=== PATIENT | female | born 1960 | race African-American/Black ===

== ENCOUNTER → 2016-11-15 | Outpatient (CLI) | payer MEDICARE ==
[~2016-11-15] MED LIST: REGADENOSON 0.4 MG/5 ML IV ONE
== END | disposition home or self-care (01) ==
LOC: NM 07:54
DX: I20.9 Angina pectoris, unspecified (principal)
CPT/HCPCS: 78452; 93017; A9500; J2785

== ENCOUNTER 2020-10-15 08:49 | Inpatient (IN) | payer MEDICARE, MEDICAID ==
[~2020-10-15] VITALS: Ht 165.1 cm; Wt 80.3 kg
[2020-10-15] MEDS ORDERED: MORPHINE SULFATE 4 MG/ML CPJ (NOT FOR IM USE) IV STA (09:03)
[2020-10-15] MEDS ORDERED: ONDANSETRON HCL 4MG/2ML INJ IV STA (09:03)
[2020-10-15] MEDS ORDERED: FAMOTIDINE 20MG/2ML VIAL IV STA (09:03)
[2020-10-15] MEDS ORDERED: SODIUM CHLORIDE 0.9% 1,000 ML IV ONE (09:15)
[2020-10-15 09:22] LABS: BASOPHILS % 0.6 % (0.0-2.0); EOSINOPHILS % 1.2 % (0.0-5.0); HEMATOCRIT. 40.7 % (36.0-48.0); HEMOGLOBIN. 12.6 g/dL (12.0-16.0); LYMPHOCYTES % 20.6 % (20.0-50.0); MEAN CORPUSCULAR HEMOGLOBIN 26.5 pg (28.0-32.0); MEAN CORPUSCULAR VOLUME 85.2 fL (81.0-99.0); MEAN PLATELET VOLUME 8.2 fl (7.4-10.4); MONOCYTES % 5.4 % (2.0-8.0); NEUTROPHILS % 72.2 % (40.0-76.0); PLATELET 209 x1000/uL (130-400); RED BLOOD CELL COUNT 4.78 mill/uL (4.2-5.4); RED CELL DISTRIBUTION WIDTH 16.7 % (11.6-14.6)
[2020-10-15 09:28] LABS: CHLORIDE 108 mEq/L (98-107)
[2020-10-15 09:34] LABS: ETHANOL BLOOD < 10 mg/dL
[2020-10-15 10:03] LABS: PROTHROMBIN TIME 10.7 sec (9.6-11.0)
[2020-10-15 10:11] LABS: CLARITY URINE CLEAR (CLEAR); COLOR URINE YELLOW (YELLOW); KETONES URINE NEGATIVE (NEGATIVE); LEUKOCYTE ESTERASE URINE NEGATIVE (NEGATIVE); NITRITE URINE NEGATIVE (NEGATIVE); OCCULT BLOOD URINE NEGATIVE (NEGATIVE); PH URINE 7.5 (4.5-8.0); PROTEIN URINE 1+ (NEGATIVE); SPECIFIC GRAVITY URINE 1.011 (1.005-1.030); UROBILINOGEN URINE 0.2 E.U./dL (0.2-1.0)
[2020-10-15] MEDS ORDERED: SODIUM CHLORIDE 0.9% 1000ML BAG (SEPSIS BOLUS) IV ONE (10:15)
[2020-10-15] MEDS ORDERED: PIPERACILLIN/TAZ 3.375G PREMIX 50 ML IV ONE (10:15)
[2020-10-15] MEDS ORDERED: VANCOMYCIN 1 G PREMIX 200 ML IV ONE (10:15)
[2020-10-15 10:24] LABS: METHADONE URINE SCREEN NEGATIVE (NEGATIVE)
[2020-10-15 10:25] LABS: *AMPHETAMINES SCREEN URINE NEGATIVE (NEGATIVE); *BARBITURATES SCREEN URINE NEGATIVE (NEGATIVE); *BENZODIAZEPINES SCREEN URINE NEGATIVE (NEGATIVE); CANNABINOID URINE SCREEN PRESUMTIVE POSITIVE (NEGATIVE); OPIATES URINE SCREEN PRESUMTIVE POSITIVE (NEGATIVE); PHENCYCLIDINE URINE SCREEN NEGATIVE (NEGATIVE)
[2020-10-15 10:26] LABS: *COCAINE SCREEN URINE NEGATIVE (NEGATIVE)
[2020-10-15] MEDS ORDERED: IOHEXOL-300 100 ML BOTTLE ONE (10:47)
[2020-10-15] MEDS ORDERED: MORPHINE SULFATE 4 MG/ML CPJ (NOT FOR IM USE) IV ONE ×2 (12:15→14:00)
[2020-10-15] MEDS ORDERED: AMLODIPINE 10MG TABLET PO SCH (13:15)
[2020-10-15] MEDS ORDERED: CLONIDINE 0.1MG TABLET PO PRN (13:15)
[2020-10-15] MEDS ORDERED: ACETAMINOPHEN 325MG TABLET PO PRN (13:15)
[2020-10-15] MEDS ORDERED: DILTIAZEM HCL 5MG/ML 5ML VIAL IV ONE (14:00)
[2020-10-15] MEDS ORDERED: MORPHINE SULFATE 2 MG/ML CPJ (NOT FOR IM USE) IV NR (14:00)
[2020-10-15] MEDS ORDERED: MORPHINE SULFATE 4 MG/ML CPJ (NOT FOR IM USE) IV NR (14:00)
[2020-10-15] MEDS: ONDANSETRON HCL 4MG/2ML INJ IV PRN ×2 (14:17→20:18)
[2020-10-15] MEDS ORDERED: DILTIAZEM HCL 5MG/ML 5ML VIAL IV NR (19:00)
[2020-10-15] MEDS: ENOXAPARIN 80MG/0.8ML SYR SUBCUT SCH (19:30)
[2020-10-15] MEDS: MORPHINE SULFATE 2 MG/ML CPJ (NOT FOR IM USE) IV PRN ×2 (19:42→23:56)
[2020-10-15 21:46] LABS: HEMATOCRIT 38.1 % (36.0-48.0); HEMOGLOBIN 12.3 g/dL (12.0-16.0)
[2020-10-15] MEDS ORDERED: METOPROLOL TARTRATE 5MG/5ML VIAL IV ONE (22:00)
[2020-10-15] MEDS: DILTIAZEM HCL 60MG TABLET PO SCH (22:00)
[2020-10-15] MEDS ORDERED: DILTIAZEM HCL 125 MG in DEXTROSE 5% WATER 125 ML IV PRN (22:15)
[2020-10-16] VITALS (11 sets, daily range): BP systolic 109–168; BP diastolic 22–119
[2020-10-16] MEDS: MORPHINE SULFATE 2 MG/ML CPJ (NOT FOR IM USE) IV PRN ×2 (04:10→20:03)
[2020-10-16 05:16] LABS: BASOPHILS % 0.3 % (0.0-2.0); HEMATOCRIT. 38.4 % (36.0-48.0); HEMOGLOBIN. 12.5 g/dL (12.0-16.0); LYMPHOCYTES % 10.7 % (20.0-50.0); MEAN CORPUSCULAR HEMOGLOBIN 26.9 pg (28.0-32.0); MEAN CORPUSCULAR VOLUME 82.4 fL (81.0-99.0); MEAN PLATELET VOLUME 7.8 fl (7.4-10.4); MONOCYTES % 10.2 % (2.0-8.0); NEUTROPHILS % 78.8 % (40.0-76.0); PLATELET 190 x1000/uL (130-400); RED BLOOD CELL COUNT 4.65 mill/uL (4.2-5.4); RED CELL DISTRIBUTION WIDTH 16.3 % (11.6-14.6)
[2020-10-16 05:23] LABS: CHLORIDE 104 mEq/L (98-107)
[2020-10-16] MEDS: DILTIAZEM HCL 60MG TABLET PO SCH ×3 (06:00→22:13)
[2020-10-16] MEDS: ENOXAPARIN 80MG/0.8ML SYR SUBCUT SCH ×2 (09:00→15:55)
[2020-10-16] MEDS ORDERED: POTASSIUM CHLORIDE 20MEQ TABLET SR PO NR (13:00)
[2020-10-16] MEDS ORDERED: DILTIAZEM HCL 5MG/ML 5ML VIAL IV PRN (14:30)
[2020-10-16] MEDS ORDERED: METO-411 MT (15:33)
[2020-10-16] MEDS ORDERED: LOSA50TA41 MT (15:33)
[2020-10-16] MEDS ORDERED: CALC-906 MT (15:33)
[2020-10-16] MEDS ORDERED: ATOR10TA69 MT (15:33)
[2020-10-16] MEDS ORDERED: POTA10CA42 MT (15:33)
[2020-10-16] MEDS ORDERED: FURO40TA5 MT (15:35)
[2020-10-16] MEDS ORDERED: ASPI-1497 MT (15:35)
[2020-10-16] MEDS ORDERED: RIVA20TA MT (15:35)
[2020-10-16] MEDS ORDERED: non (15:42)
[2020-10-16] MEDS: ONDANSETRON HCL 4MG/2ML INJ IV PRN (20:57)
[2020-10-16] MEDS ORDERED: LORAZEPAM 1MG TABLET PO PRN (22:30)
[2020-10-17] VITALS (14 sets, daily range): BP systolic 111–140; BP diastolic 34–99
[2020-10-17] MEDS: ZOLPIDEM TARTRATE 5MG TABLET PO PRN ×2 (00:57→21:25)
[2020-10-17] MEDS: DILTIAZEM HCL 60MG TABLET PO SCH ×3 (06:00→21:25)
[2020-10-17] MEDS: ENOXAPARIN 80MG/0.8ML SYR SUBCUT SCH (06:52)
[2020-10-17 11:38] LABS: BASOPHILS % 0.3 % (0.0-2.0); EOSINOPHILS % 0.1 % (0.0-5.0); HEMATOCRIT. 36.6 % (36.0-48.0); HEMOGLOBIN. 11.4 g/dL (12.0-16.0); LYMPHOCYTES % 17.1 % (20.0-50.0); MEAN CORPUSCULAR HEMOGLOBIN 26.2 pg (28.0-32.0); MEAN CORPUSCULAR VOLUME 83.8 fL (81.0-99.0); MEAN PLATELET VOLUME 8.2 fl (7.4-10.4); NEUTROPHILS % 72.5 % (40.0-76.0); PLATELET 175 x1000/uL (130-400); RED BLOOD CELL COUNT 4.37 mill/uL (4.2-5.4); RED CELL DISTRIBUTION WIDTH 16.4 % (11.6-14.6)
[2020-10-17 11:45] LABS: CHLORIDE 106 mEq/L (98-107)
[2020-10-17] MEDS ORDERED: RIVAROXABAN 20 MG TABLET PO SCH (17:20)
[2020-10-17] MEDS: MORPHINE SULFATE 2 MG/ML CPJ (NOT FOR IM USE) IV PRN (19:38)
[2020-10-17] MEDS: AMIODARONE HCL 200 MG TABLET PO SCH (20:20)
[2020-10-18 02:00] VITALS: BP 111/73
[2020-10-18 04:00] VITALS: BP 113/81
[2020-10-18 06:00] VITALS: BP 119/74
[2020-10-18] MEDS: DILTIAZEM HCL 60MG TABLET PO SCH (06:29)
[2020-10-18 07:30] VITALS: BP 125/85
[2020-10-18 08:08] VITALS: BP 125/85
[2020-10-18] MEDS: AMIODARONE HCL 200 MG TABLET PO SCH (08:39)
== END 2020-10-18 09:00 | disposition home or self-care (01) | DRG 392 ==
LOC: ER 08:49 → 3WST 12:38 → EDBEDREQ 12:40 → EDBEDREQTM 12:40 → EDBEDREQ 12:41 → EDBEDREQSVC 21:22 → EDBEDREQTM 21:22 → ENRESERV 10-16 07:21 → EDBEDREQSVC 10-16 12:28 → ENRESERV 10-16 13:19 → CANRESERV 10-16 13:19
PROVIDERS: ADMIT Internal Medicine; ATTEND Internal Medicine
DX: K52.9 Noninfective gastroenteritis and colitis, unspecified (principal); E87.2 Acidosis; J98.11 Atelectasis; I48.20 Chronic atrial fibrillation, unspecified; I50.40 Unspecified combined systolic (congestive) and diastolic (congestive) heart failure; F17.200 Nicotine dependence, unspecified, uncomplicated; E87.8 Other disorders of electrolyte and fluid balance, not elsewhere classified; I71.4 Abdominal aortic aneurysm, without rupture; J44.9 Chronic obstructive pulmonary disease, unspecified; I11.0 Hypertensive heart disease with heart failure; F14.90 Cocaine use, unspecified, uncomplicated; Z98.51 Tubal ligation status; Z98.84 Bariatric surgery status; F12.90 Cannabis use, unspecified, uncomplicated
CPT/HCPCS: 36415; 71045; 74177; 80048; 80053; 80305; 80320; 81003; 82962; 83036; 83605; 84145; 84484; 85014; 85018; 85025; 93005; 93306; 99291; J1650; J2270; J2405; J2543; J3370; J3490; J7030; J7040; J7060; Q9967; G0480

== ENCOUNTER 2022-02-02 08:42 | Inpatient (IN) | payer MEDICARE, MEDICAID ==
[~2022-02-02] VITALS: Ht 166.4 cm; Wt 79.4 kg
[~2022-02-02 08:42] MED LIST changes: +ASPI-1497 MT; +ATOR10TA69 MT; +CALC-906 MT; +FURO40TA5 MT; +LOSA50TA41 MT; +METO-411 MT; +POTA10CA42 MT; -REGADENOSON 0.4 MG/5 ML IV ONE; +RIVA20TA MT; +non
[2022-02-02] MEDS ORDERED: MORPHINE SULFATE 2 MG/ML CPJ (NOT FOR IM USE) IV ONE ×2 (10:00→12:15)
[2022-02-02] MEDS ORDERED: METOPROLOL TARTRATE 5MG/5ML VIAL IV ONE ×2 (10:00→12:15)
[2022-02-02 10:19] LABS: BASOPHILS % 0.5 % (0.0-2.0); EOSINOPHILS % 0.2 % (0.0-5.0); HEMATOCRIT. 39.3 % (36.0-48.0); HEMOGLOBIN. 12.3 g/dL (12.0-16.0); LYMPHOCYTES % 17.5 % (20.0-50.0); MEAN CORPUSCULAR HEMOGLOBIN 24.9 pg (28.0-32.0); MEAN CORPUSCULAR VOLUME 79.1 fL (81.0-99.0); MEAN PLATELET VOLUME 9.3 fl (7.4-10.4); MONOCYTES % 7.2 % (2.0-8.0); NEUTROPHILS % 74.6 % (40.0-76.0); PLATELET 176 x1000/uL (130-400); RED BLOOD CELL COUNT 4.97 mill/uL (4.2-5.4); RED CELL DISTRIBUTION WIDTH 24.5 % (11.6-14.6)
[2022-02-02 10:20] LABS: INR 1.1; PROTHROMBIN TIME 11.6 sec (9.6-11.0)
[2022-02-02 10:32] LABS: CHLORIDE 110 mEq/L (98-107)
[2022-02-02] MEDS ORDERED: RIVAROXABAN 10 MG TABLET PO SCH (11:00)
[2022-02-02 11:16] LABS: PLATELET ESTIMATE NORMAL
[2022-02-02] MEDS: POTASSIUM CHLORIDE 20MEQ/PACKET PO SCH (12:03)
[2022-02-02] MEDS ORDERED: IOHEXOL-350 100 ML BOTTLE ONE (14:27)
[2022-02-02] MEDS ORDERED: DILTIAZEM HCL 5MG/ML 5ML VIAL IV ONE (15:30)
[2022-02-02 15:42] LABS: CLARITY URINE CLOUDY (CLEAR); COLOR URINE YELLOW (YELLOW); KETONES URINE NEGATIVE (NEGATIVE); LEUKOCYTE ESTERASE URINE 1+ (NEGATIVE); NITRITE URINE NEGATIVE (NEGATIVE); OCCULT BLOOD URINE TRACE (NEGATIVE); PH URINE 5.5 (4.5-8.0); PROTEIN URINE 3+ (NEGATIVE); SPECIFIC GRAVITY URINE 1.063 (1.005-1.030)
[2022-02-02] MEDS ORDERED: HEPARIN 5000 UNITS/ML VIAL IV ONE (15:45)
[2022-02-02] MEDS ORDERED: MAGNESIUM/ALUMINUM HYDROXIDE/SIMETHICONE 30ML UDC PO PRN (17:15)
[2022-02-02] MEDS ORDERED: MORPHINE SULFATE 2 MG/ML CPJ (NOT FOR IM USE) IV PRN (17:15)
[2022-02-02] MEDS ORDERED: DOCUSATE SODIUM 100MG CAPSULE PO PRN (17:15)
[2022-02-02] MEDS ORDERED: GUAIFENESIN 200MG/10ML SUGAR FREE UDC PO PRN (17:15)
[2022-02-02] MEDS ORDERED: ACETAMINOPHEN 325MG TABLET PO PRN (17:15)
[2022-02-02] MEDS ORDERED: IPRATROPIUM/ALBUTEROL 0.5-3(2.5)MG/3ML NEB NEB PRN (17:15)
[2022-02-02] MEDS ORDERED: NITROGLYCERIN 0.4MG TABLET SL SL PRN (17:15)
[2022-02-02] MEDS ORDERED: TRAMADOL 50MG TABLET PO PRN (17:15)
[2022-02-02] MEDS ORDERED: NALOXONE HCL 0.4MG/ML VIAL IV PRN (17:30)
[2022-02-02 18:33] LABS: FOLIC ACID (FOLATE) SERUM 16.5 ng/mL (>5.38)
[2022-02-02 18:43] LABS: T4 FREE 1.6 ng/dL (0.76-1.46)
[2022-02-02] MEDS ORDERED: DILTIAZEM HCL 5MG/ML 5ML VIAL IV NR (19:00)
[2022-02-02] MEDS: ENOXAPARIN 80MG/0.8ML SYR SUBCUT SCH (19:13)
[2022-02-02] MEDS: METOPROLOL TARTRATE 25MG TABLET PO SCH (21:38)
[2022-02-02] MEDS: ONDANSETRON HCL 4MG/2ML INJ IV PRN (21:40)
[2022-02-02] MEDS: MEROPENEM 1,000 MG in SODIUM CHLORIDE 0.9% 100 ML IV SCH (22:00)
[2022-02-03] MEDS: ZOLPIDEM TARTRATE 5MG TABLET PO PRN ×2 (03:11→21:02)
[2022-02-03] MEDS: CLONIDINE 0.1MG TABLET PO PRN (03:14)
[2022-02-03] MEDS: MEROPENEM 1,000 MG in SODIUM CHLORIDE 0.9% 100 ML IV SCH ×3 (03:30→18:02)
[2022-02-03 06:13] LABS: BASOPHILS % 0.4 % (0.0-2.0); CHLORIDE 110 mEq/L (98-107); EOSINOPHILS % 0.1 % (0.0-5.0); LYMPHOCYTES % 12.1 % (20.0-50.0); MEAN CORPUSCULAR HEMOGLOBIN 25.4 pg (28.0-32.0); MEAN CORPUSCULAR VOLUME 78.3 fL (81.0-99.0); MEAN PLATELET VOLUME 8.9 fl (7.4-10.4); NEUTROPHILS % 80.4 % (40.0-76.0); PLATELET 172 x1000/uL (130-400); RED BLOOD CELL COUNT 4.72 mill/uL (4.2-5.4); RED CELL DISTRIBUTION WIDTH 24.2 % (11.6-14.6)
[2022-02-03 06:24] LABS: CREATINE KINASE 171 IU/L (26-192); CREATINE KINASE MB FRACTION 2.1 ng/mL (0.5-3.6); PHOSPHORUS 3.8 mg/dL (2.5-4.9)
[2022-02-03] MEDS: ENOXAPARIN 80MG/0.8ML SYR SUBCUT SCH ×2 (06:45→17:02)
[2022-02-03] MEDS: LOSARTAN POTASSIUM 50 MG TABLET PO SCH (09:00)
[2022-02-03] MEDS: FAMOTIDINE 20MG TABLET PO SCH (09:00)
[2022-02-03] MEDS: METOPROLOL TARTRATE 25MG TABLET PO SCH ×2 (09:00→21:03)
[2022-02-03] MEDS: ASPIRIN 325MG EC TABLET PO SCH (09:00)
[2022-02-03 11:00] VITALS: BP 136/106
[2022-02-03 11:21] LABS: *AMPHETAMINES SCREEN URINE NEGATIVE (NEGATIVE); *BARBITURATES SCREEN URINE NEGATIVE (NEGATIVE); *BENZODIAZEPINES SCREEN URINE NEGATIVE (NEGATIVE); *COCAINE SCREEN URINE NEGATIVE (NEGATIVE); CANNABINOID URINE SCREEN PRESUMTIVE POSITIVE (NEGATIVE); METHADONE URINE SCREEN NEGATIVE (NEGATIVE); OPIATES URINE SCREEN PRESUMTIVE POSITIVE (NEGATIVE); PHENCYCLIDINE URINE SCREEN NEGATIVE (NEGATIVE)
[2022-02-03] MEDS: POTASSIUM CHLORIDE 20MEQ/PACKET PO SCH (11:47)
[2022-02-03 12:00] VITALS: BP 120/83
[2022-02-03 16:00] VITALS: BP 137/103
[2022-02-03 18:33] LABS: CREATINE KINASE MB FRACTION 2.5 ng/mL (0.5-3.6)
[2022-02-03 20:00] VITALS: BP 126/91
[2022-02-04] VITALS: BP 120/89
[2022-02-04] MEDS: MEROPENEM 1,000 MG in SODIUM CHLORIDE 0.9% 100 ML IV SCH ×3 (02:37→18:16)
[2022-02-04 04:00] VITALS: BP 100/61
[2022-02-04] MEDS: ENOXAPARIN 80MG/0.8ML SYR SUBCUT SCH ×2 (05:35→18:17)
[2022-02-04 08:00] VITALS: BP 128/95
[2022-02-04] MEDS: METOPROLOL TARTRATE 25MG TABLET PO SCH ×2 (09:50→21:38)
[2022-02-04] MEDS: LOSARTAN POTASSIUM 50 MG TABLET PO SCH (09:50)
[2022-02-04] MEDS: ASPIRIN 325MG EC TABLET PO SCH (09:50)
[2022-02-04] MEDS: FAMOTIDINE 20MG TABLET PO SCH (09:51)
[2022-02-04 11:50] VITALS: BP 115/65
[2022-02-04 16:00] VITALS: BP 153/120
[2022-02-04 20:00] VITALS: BP 120/74
[2022-02-04] MEDS: ONDANSETRON HCL 4MG/2ML INJ IV PRN (21:46)
[2022-02-04] MEDS: ACETAMINOPHEN 325MG TABLET PO PRN ×2 (21:46→23:40)
[2022-02-05] VITALS (8 sets, daily range): BP systolic 97–157; BP diastolic 53–121
[2022-02-05] MEDS: MEROPENEM 1,000 MG in SODIUM CHLORIDE 0.9% 100 ML IV SCH ×3 (02:00→18:00)
[2022-02-05] MEDS: ENOXAPARIN 80MG/0.8ML SYR SUBCUT SCH ×2 (05:13→18:00)
[2022-02-05] MEDS: ONDANSETRON HCL 4MG/2ML INJ IV PRN (08:48)
[2022-02-05] MEDS: LOSARTAN POTASSIUM 50 MG TABLET PO SCH (08:48)
[2022-02-05] MEDS: ASPIRIN 325MG EC TABLET PO SCH (08:48)
[2022-02-05] MEDS: FAMOTIDINE 20MG TABLET PO SCH (08:48)
[2022-02-05] MEDS: METOPROLOL TARTRATE 25MG TABLET PO SCH ×2 (08:49→20:40)
[2022-02-05 11:00] LABS: HEMATOCRIT 39.6 % (36.0-48.0); HEMOGLOBIN 12.7 g/dL (12.0-16.0); MEAN CORPUSCULAR HEMOGLOBIN 25.2 pg (28.0-32.0); MEAN CORPUSCULAR VOLUME 78.8 fL (81.0-99.0); PLATELET 176 x1000/uL (130-400); RED BLOOD CELL COUNT 5.03 mill/uL (4.2-5.4); RED CELL DISTRIBUTION WIDTH 23.8 % (11.6-14.6)
[2022-02-05 11:24] LABS: CHLORIDE 106 mEq/L (98-107)
[2022-02-05] MEDS: CLONIDINE 0.1MG TABLET PO PRN (20:44)
[2022-02-06] VITALS: BP 144/113
[2022-02-06] MEDS: MEROPENEM 1,000 MG in SODIUM CHLORIDE 0.9% 100 ML IV SCH (02:00)
[2022-02-06 04:00] VITALS: BP 136/85
[2022-02-06] MEDS: ENOXAPARIN 80MG/0.8ML SYR SUBCUT SCH (06:25)
[2022-02-06] MEDS: METOPROLOL TARTRATE 25MG TABLET PO SCH (08:59)
[2022-02-06] MEDS: LOSARTAN POTASSIUM 50 MG TABLET PO SCH (08:59)
[2022-02-06] MEDS: FAMOTIDINE 20MG TABLET PO SCH (08:59)
[2022-02-06] MEDS: ASPIRIN 325MG EC TABLET PO SCH (08:59)
== END 2022-02-06 09:20 | disposition home or self-care (01) | DRG 871 ==
LOC: ER 09:04 → EDBEDREQ 14:31 → EDBEDREQTM 14:31 → EDBEDREQSVC 14:31 → MICUSO 15:17 → EDBEDREQ 15:22 → EDBEDREQSVC 15:22 → EDBEDREQTM 15:22 → EDBEDREQ 15:49 → EDBEDREQTM 15:49 → EDBEDREQSVC 15:49 → SUPCPDRO 17:03 → 7WST 02-03 08:53
PROVIDERS: ADMIT Internal Medicine; ATTEND Internal Medicine
DX: A41.9 Sepsis, unspecified organism (principal); I21.A1 Myocardial infarction type 2; N39.0 Urinary tract infection, site not specified; E78.5 Hyperlipidemia, unspecified; I48.91 Unspecified atrial fibrillation; I50.9 Heart failure, unspecified; I11.0 Hypertensive heart disease with heart failure; F12.90 Cannabis use, unspecified, uncomplicated; E87.6 Hypokalemia; I70.202 Unspecified atherosclerosis of native arteries of extremities, left leg; I71.4 Abdominal aortic aneurysm, without rupture; E80.6 Other disorders of bilirubin metabolism; E61.1 Iron deficiency; F17.210 Nicotine dependence, cigarettes, uncomplicated; Z79.01 Long term (current) use of anticoagulants; Z88.0 Allergy status to penicillin; Z98.51 Tubal ligation status; Z86.73 Personal history of transient ischemic attack (TIA), and cerebral infarction without residual deficits
CPT/HCPCS: 36415; 74174; 80048; 80053; 80061; 80305; 81003; 82550; 82553; 82607; 82746; 83036; 83540; 83550; 83605; 83735; 83880; 84100; 84132; 84145; 84439; 84443; 84484; 85025; 85027; 85379; 93005; 93923; 93970; 99291; C1893; J1650; J2185; J2270; J2405; J3490; J7050; Q9967